=== PATIENT | female | born 1955 | race Caucasian/White ===

== ENCOUNTER 2022-10-08 09:34 | Outpatient (REF) | payer MEDICARE, SELFPAY ==
[2022-10-08 11:04] LABS: MANUAL DIFF FLAG NO
[2022-10-08 11:18] LABS: Basophils Absolute Auto 0.1 X10*3/uL (0.0-0.2); Basophils Percent Auto 1.4 % (0-2); Eosinophils Absolute Auto 0.1 X10*3/uL (0.0-0.4); Eosinophils Percent Auto 2.7 % (0-4); Hematocrit 37.4 % (37.0-47.0); Hemoglobin 12.6 g/dl (12.0-16.0); Imm Gran Abs Auto 0.01 X10*3/uL (0.00-0.03); Imm Gran Pct Auto 0.2 % (0.0-0.4); Lymphocytes Absolute Auto 1.2 X10*3/uL (1.2-4.9); Lymphocytes Percent Auto 27.6 % (20-40); Mean Corpuscular HGB Conc 33.7 g/dl (31.0-35.0); Mean Corpuscular Hemoglobin 31.3 pg (27.0-33.0); Mean Corpuscular Volume 92.8 fL (80.0-98.0); Mean Platelet Volume 9.5 fL (9.4-12.3); Monocytes Absolute Auto 0.4 X10*3/uL (0.1-1.2); Neutrophils Absolute Auto 2.5 x10*3/uL (2.0-8.3); Neutrophils Percent Auto 58.1 % (45-73); Platelet Count 296 X10*3/uL (160-400); Red Blood Count 4.03 X10*6/uL (4.20-5.50); Red Cell Distribution Width 11.9 % (11.0-16.0); White Blood Count 4.4 X10*3/uL (4.8-10.8)
[2022-10-08 11:38] LABS: Alanine Aminotransferase 28 U/L (0-31); Albumin Level 4.6 g/dL (3.5-5.0); Alkaline Phosphatase 66 U/L (39-117); Anion Gap 10 (12-20); Aspartate Amino Transferase 25 U/L (5-31); Bilirubin Total 0.7 mg/dL (0.0-1.0); Blood Urea Nitrogen 16 mg/dL (9-16); Calcium 9.8 mg/dL (8.4-10.2); Carbon Dioxide 29 mmol/L (22-29); Chloride 104 mmol/L (96-108); Cholesterol 279 mg/dL; Estimated Glomerular Filt Rate > 60; Glucose Fasting 92 mg/dL (60-99); HDL Cholesterol 87 mg/dL; LDL Cholesterol Calculated 177 mg/dl; Potassium 4.3 mmol/L (3.3-5.1); Sodium 139 mmol/L (135-145); Total Protein 7.1 g/dL (6.5-8.0); Triglycerides 79 mg/dL
[2022-10-08 11:55] LABS: TSH reflex Free T4 2.53 uIU/mL (0.32-4.0); Vitamin D 25-OH Total 52.9 ng/mL (>30)
== END 2022-10-08 09:35 | disposition home or self-care (01) ==
LOC: HO.HMGCLDS 09:34
PROVIDERS: PCP Internal Medicine; Visit Provider Internal Medicine
DX: Z00.00 Encounter for general adult medical examination without abnormal findings (principal); G47.30 Sleep apnea, unspecified; Z98.890 Other specified postprocedural states; Z78.0 Asymptomatic menopausal state; Z12.4 Encounter for screening for malignant neoplasm of cervix
CPT/HCPCS: 36415; 80053; 80061; 82306; 84443; 85025; 87624; 88142

== ENCOUNTER 2022-10-08 09:56 | Outpatient (REF) | payer MEDICARE, SELFPAY ==
[2022-10-09 22:03] LABS: HPV mRNA E6/E7 Not Detected (Not Detected)
== END 2022-10-08 09:57 | disposition home or self-care (01) ==
LOC: HO.LNP 09:56
PROVIDERS: Visit Provider Internal Medicine
DX: Z13.89 Encounter for screening for other disorder (principal)
CPT/HCPCS: 88142

== ENCOUNTER → 2022-11-04 13:53 | Outpatient (REF) | payer MEDICARE, SELFPAY ==
--- NOTE | ~2022-11-04 | MM_ITS ---
EXAMINATION: BONE DENSITOMETRY CLINICAL INDICATION: Menopause. COMPARISON: None (current study represents initial baseline exam). TECHNIQUE: Using a [employer] DXA System (software version: 13.1) manufactured by [employer], dual-energy x-ray absorptiometry was performed of the lumbar spine and left hip. The images are of good technical quality. Summary results are attached. FINDINGS: AP SPINE L1-L4: BMD 0.843 g/cm2, Z-score -0.9, T-score -2.8, osteoporosis. LEFT FEMUR, NECK: BMD 0.711 g/cm2, Z-score -0.7, T-score -2.3, osteopenia. LEFT FEMUR, TOTAL: BMD 0.813 g/cm2, Z-score -0.1, T-score -1.5, osteopenia. IDENTIFIED RISK FACTORS: Menopause, low calcium intake. HISTORY OF FRACTURE: None listed. MEDICATIONS: Multivitamin, vitamin D. MM/XR DEXA axial skeleton IMPRESSION: 1. DIAGNOSIS: Osteoporosis based on the lowest T-score value of -2.8 in the lumbar spine applying World Health Organization criteria. 2. 10-YEAR FRACTURE RISK PREDICTION, FRAX: According to the guidelines, FRAX calculation should only be performed on patients in the osteopenia bone density category. Therefore, FRAX was not performed on this patient. 3. Treatment Recommendations: NOF guidelines recommend consideration for treatment in postmenopausal women and men age 50 and older presenting with the following: -A hip or vertebral (clinical or morphometric) fracture. -T-score less than or equal to -2.5 at the femoral neck or spine after appropriate evaluation to exclude secondary causes. -Low bone mass at the hip or spine and a 10-year fracture probability by FRAX of greater than or equal to 3% for hip fracture or greater than or equal to 20% for major osteoporotic fracture based on the [place] adapted WHO algorithm. 4. Other Recommendations: All treatment decisions require clinical judgment and consideration of individual patient factors, including patient preferences, comorbidities, previous drug use, risk factors not captured in the FRAX model (e.g. frailty, falls, vitamin D deficiency, increased bone turnover, interval significant decline in bone density) and possible under or overestimation of fracture risk by FRAX. Additional medical evaluation for secondary cause of low bone mineral density may be appropriate. FUTURE SCAN RECOMMENDATION: People with diagnosed cases of osteoporosis or at high risk for fracture should have regular bone mineral density tests. For patients eligible for Medicare, routine testing is allowed once every 2 years. The testing frequency can be increased to one year for patients who have rapidly progressing disease, those who are receiving or discontinuing medical therapy to restore bone mass, or have additional risk factors.
== END ==
LOC: HO.SL 13:53
PROVIDERS: Visit Provider Internal Medicine
DX: Z13.820 Encounter for screening for osteoporosis (principal); Z78.0 Asymptomatic menopausal state; G47.30 Sleep apnea, unspecified; R06.83 Snoring
CPT/HCPCS: 77080; 95806

== ENCOUNTER 2024-01-14 07:31 | Outpatient (AMB) | payer MEDICARE, SELFPAY ==
--- NOTE | 2024-01-14 07:44 | A.OFFPC_ITS ---
Vital Signs 01/14/24 07:52 Height 5 ft 1 in Weight 121 lb BMI 22.9 BP 92/60 Blood Pressure Location Lt brachial Position Sitting Pulse 56 Pulse Source Pulse Oximeter Pulse Oximetry (%) 97 Oxygen Delivery Method Room Air Intake Visit Reasons: 01/[address] 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 Allergies No Known Allergies Allergy (Verified 01/14/24 07:48) Medication List - Last Reconciled 01/14/24 by Lubna Kee MD cholecalciferol (vitamin D3) 25 mcg PO DAILY lysine 500 mg PO DAILY mecobalamin (vitamin B12) 1,000 mcg PO DAILY multivitamin 1 tab PO DAILY soybean, fermented (Nattokinase) mg PO vitamin E (dl, acetate) 45 mg PO BID Tobacco use date assessed: 01/14/24 Fall risk assessment: 1 Fall in past year Last assessed Fall Risk: 01/14/24 Dental Screening Dental Screen Date: 01/14/24 Did you have a dental visit in the last 12 months?: Yes Did you have a dental problem in the last 6 months where you did not have access to dental care?: No HPI HPI Comments History of Present Illness Details Pt presents for PE. Pt c/o chronic GERD for years, feeling pressure- like sensation in mid esophagus after eating spicy and sweet foods, getting more frequent in the last few months. She denies dysphagia odynophagia food regurgitation abdominal pain hematochezia melena. Patient has been taking omeprazole on and off with some relief but never had endoscopy. PFSH Family History Brother Substance use disorder Social History Household Members Other:: , retired Housing: House Patient Tobacco Use Status: Never used Tobacco e-Cigarette/Vaping Use: Never Used service: No Current occupational status: unemployed Cognitive needs: No Hearing needs: No Vision needs: Yes Questionnaire PHQ-9 Over the last 2 weeks, how often have you been bothered by any of the following problems? 1. Little interest or pleasure in doing things: not at all 2. Feeling down, depressed, or hopeless: not at all 3. Trouble falling or staying asleep, or sleeping too much: not at all 4. Feeling tired or having little energy: several days 5. Poor appetite or overeating: not at all 6. Feeling bad about yourself - or that you are a failure or have let yourself or your family down: not at all 7. Trouble concentrating on things, such as reading the newspaper or watching television: not at all 8. Moving or speaking so slowly that other people could have noticed. Or the opposite - being so fidgety or restless that you have been moving around a lot more than usual: not at all 9. Thoughts that you would be better off or of hurting yourself in some way: not at all Total score: 1 Depression Screening Interpretation: Negative Depression Screening Done: Yes Source: Developed by Drs. Ricardo Loera, Lucia Nieto, Dario Cortés and colleagues, with an educational allison from [employer]. Thrive Questionnaire Date Thrive assessed: 01/14/24 I am a: Patient What is your living situation today?: I have a steady place to live Within the past 12 months, did the food you bought not last and you didn't have the money to get more?: Never true Within the past 12 months, did you worry whether your food would run out before you got money to buy more?: Never true Do you have trouble paying for medicines?: No Do you have trouble getting transportation to medical appointments?: No Do you have trouble paying your heating and electricity bill?: No Do you have trouble taking care of your child, family member or friend?: No Do you have trouble with day-to-day activities such as bathing, preparing meals, shopping, managing finances, etc.?: No Are you currently unemployed and looking for a job?: No Are you interested in more education?: No THRIVE Score: 0 AUDIT C Alcohol Use Questionnaire (AUDIT-C) 1. How often do you have a drink containing alcohol?: 2-4 times a month 2. How many drinks containing alcohol do you have on a typical day when you are drinking?: 1 or 2 3. How often do you have six or more drinks on one occasion?: Never Total Score: 2 MILDRED-7 AMB Questionnaire MILDRED-7 Date MILDRED - 7 assessed: 01/14/24 Feeling nervous, anxious, or on edge: 0 = Not at all Not being able to stop or control worryin = Not at all Worrying too much about different things: 0 = Not at all Trouble relaxin = Not at all Being so restless that it is hard to sit still: 0 = Not at all Becoming easily annoyed or irritable: 0 = Not at all Feeling afraid as if something awful might happen: 0 = Not at all Total MILDRED-7 score (0-4 normal; 5-9 mild; 10-14 moderate; 15-21 severe): 0 Source: Developed by Drs. Ricardo Loera, Lucia Nieto, Dario Cortés and colleagues, with an educational allison from [employer]. Review of Systems Const All systems reviewed & are unremarkable except as noted in HPI and below Reports no additional complaints Eyes Reports no additional complaints ENT Reports no additional complaints Card Reports no additional complaints Resp Reports no additional complaints GI Reports no additional complaints Reports no additional complaints Musc Reports no additional complaints Skin/Breast Reports system reviewed and no additional complaints, except as documented Physical exam (Primary Care) Vital Signs: Last Vital Signs Pulse 56 01/14/24 07:52 BP 92/60 01/14/24 07:52 Pulse Ox 97 01/14/24 07:52 Oxygen Delivery Method Room Air 01/14/24 07:52 BMI result Body Mass Index 22.9 Tobacco/Smoking Status: Tobacco use Status Tobacco use date assessed 01/14/24 01/14/24 07:54 Patient Tobacco Use Status Never used Tobacco 01/14/24 08:29 e-Cigarette/Vaping Use Never Used 01/14/24 08:29 PHQ-9: PHQ-9 Score PHQ-9: Total score 1 01/14/24 08:16 Depression Screening Interpretation: Negative Thrive Assessment: Date of Thrive Assessment Date Thrive assessed 01/14/24 01/14/24 08:04 Const General: no acute distress HENMT Head: Yes normal to inspection Ears: hearing grossly normal bilaterally Face and sinus: Yes normal facial exam Throat: Yes posterior oropharynx normal Eyes General: appearance normal, both eyes and all related structures Neck Neck: Yes no lymphadenopathy and Yes supple Resp Effort & Inspection: normal respiratory effort Auscultation: clear to auscultation bilaterally Cardio Rhythm: regular rhythm Heart sounds: S1 normal heart sound present and S2 normal heart sound present GI Inspection: Yes normal to inspection Palpation (GI): Soft to palpation Percussion: Yes normal to percussion Auscultation: normal bowel sounds Assessment and Plan Assessment & Plan (1) GERD (gastroesophageal reflux disease): Comment: chronic GERD Code(s): K21.9 - Gastro-esophageal reflux disease without esophagitis Plan: For chronic GERD patient will be referred to golf professional of her choice at [facility]. Antegrade diet and taking PPI for 1 month discussed with the patient (2) Annual physical exam: Code(s): Z00.00 - Encounter for general adult medical examination without abnormal findings Plan: Well-balanced diet regular physical activity discussed with the patient, she will have a fasting blood work today. (3) Vitamin D deficiency: Code(s): E55.9 - Vitamin D deficiency, unspecified Plan: Continue vitamin-D supplement (4) Skin cancer: Comment: right side of nose Code(s): C44.90 - Unspecified malignant neoplasm of skin, unspecified Plan: Patient is medically cleared for Mohs surgery Orders: Orders Comprehensive [place]. Panel Fast Today Z00.00 - Encounter for general adult medical examination without abnormal findings Complete Blood Count Auto Diff Today Z00.00 - Encounter for general adult medical examination without abnormal findings Lipid Panel Today Z00.00 - Encounter for general adult medical examination without abnormal findings Vitamin D 25-OH Total Today E55.9 - Vitamin D deficiency, unspecified TSH reflex Free T4 Today Z00.00 - Encounter for general adult medical examination without abnormal findings Referrals Gastroenterology Referral K21.9 - Gastro-esophageal reflux disease without esophagitis Medications: New estradiol 10 mcg vaginal 2XW 8 inserts 4RF Coding Level of Care Code Est Pt Prev Care >65y(38387) Diagnoses GERD (gastroesophageal reflux disease) K21.9 Annual physical exam Z00.00 Vitamin D deficiency E55.9 Skin cancer C44.90
[2024-01-14 07:52] VITALS: BP 92/60; PULSE 56; O2SAT 97; BMI 22.9
== END 2024-01-14 08:40 | disposition home or self-care (01) ==
PROVIDERS: PCP Internal Medicine; Visit Provider Internal Medicine
DX: K21.9 Gastro-esophageal reflux disease without esophagitis (principal); E55.9 Vitamin D deficiency, unspecified; C44.90 Unspecified malignant neoplasm of skin, unspecified; Z01.818 Encounter for other preprocedural examination
CPT/HCPCS: 99214

== ENCOUNTER 2024-01-14 08:39 | Outpatient (REF) | payer MEDICARE, SELFPAY ==
[2024-01-14 10:22] LABS: MANUAL DIFF FLAG NO
[2024-01-14 10:39] LABS: Basophils Absolute Auto 0.1 X10*3/uL (0.0-0.2); Basophils Percent Auto 1.2 % (0-2); Eosinophils Absolute Auto 0.2 X10*3/uL (0.0-0.4); Eosinophils Percent Auto 3.3 % (0-4); Hematocrit 36.8 % (37.0-47.0); Hemoglobin 12.7 g/dl (12.0-16.0); Imm Gran Abs Auto 0.01 X10*3/uL (0.00-0.03); Imm Gran Pct Auto 0.2 % (0.0-0.4); Lymphocytes Absolute Auto 1.2 X10*3/uL (1.2-4.9); Lymphocytes Percent Auto 23.8 % (20-40); Mean Corpuscular HGB Conc 34.5 g/dl (31.0-35.0); Mean Corpuscular Hemoglobin 32.3 pg (27.0-33.0); Mean Corpuscular Volume 93.6 fL (80.0-98.0); Mean Platelet Volume 9.6 fL (9.4-12.3); Monocytes Absolute Auto 0.5 X10*3/uL (0.1-1.2); Monocytes Percent Auto 10.8 % (2-11); Neutrophils Absolute Auto 2.9 x10*3/uL (2.0-8.3); Neutrophils Percent Auto 60.7 % (45-73); Platelet Count 290 X10*3/uL (160-400); Red Blood Count 3.93 X10*6/uL (4.20-5.50); Red Cell Distribution Width 11.7 % (11.0-16.0); White Blood Count 4.8 X10*3/uL (4.8-10.8)
[2024-01-14 11:16] LABS: Alanine Aminotransferase 16 U/L (0-31); Albumin Level 4.4 g/dL (3.5-5.0); Alkaline Phosphatase 69 U/L (39-117); Anion Gap 11 (12-20); Aspartate Amino Transferase 23 U/L (5-31); Bilirubin Total 0.6 mg/dL (0.0-1.0); Blood Urea Nitrogen 10 mg/dL (9-16); Calcium 9.7 mg/dL (8.4-10.2); Carbon Dioxide 28 mmol/L (22-29); Chloride 104 mmol/L (96-108); Cholesterol 221 mg/dL (<200); Estimated Glomerular Filt Rate > 60; Glucose Fasting 89 mg/dL (60-99); HDL Cholesterol 74 mg/dL (>40); LDL Cholesterol Calculated 135 mg/dL (<100); Potassium 4.2 mmol/L (3.3-5.1); Sodium 139 mmol/L (135-145); TSH reflex Free T4 3.12 uIU/mL (0.32-4.0); Total Protein 6.8 g/dL (6.5-8.0); Triglycerides 61 mg/dL (<150); Vitamin D 25-OH Total 69.1 ng/mL (>30)
== END 2024-01-14 08:40 | disposition home or self-care (01) ==
LOC: HO.HMGCLDS 08:39
PROVIDERS: PCP Internal Medicine; Visit Provider Internal Medicine
DX: Z00.00 Encounter for general adult medical examination without abnormal findings (principal); E55.9 Vitamin D deficiency, unspecified
CPT/HCPCS: 36415; 80053; 80061; 82306; 84443; 85025

== ENCOUNTER 2024-07-18 09:49 | Outpatient (AMB) | payer MEDICARE, SELFPAY ==
[2024-07-18 10:00] VITALS: BP 100/64; PULSE 53; O2SAT 99; BMI 23.6
--- NOTE | 2024-07-18 10:05 | A.OFFPC_ITS ---
Vital Signs 07/18/24 10:00 Height 5 ft 1 in Weight 125 lb BMI 23.6 BP 100/64 Blood Pressure Location Lt brachial Position Sitting Pulse 53 Pulse Source Pulse Oximeter Pulse Oximetry (%) 99 Oxygen Delivery Method Room Air Intake Visit Reasons: Follow up Allergies No Known Allergies Allergy (Verified 07/18/24 10:03) Medication List - Last Reconciled 07/18/24 by Lubna Kee MD cholecalciferol (vitamin D3) 25 mcg PO DAILY estradiol 10 mcg vaginal 2XW lysine 500 mg PO DAILY mecobalamin (vitamin B12) 1,000 mcg PO DAILY multivitamin 1 tab PO DAILY soybean, fermented (Nattokinase) mg PO vitamin E (dl, acetate) 45 mg PO BID Tobacco use date assessed: 07/18/24 Fall risk assessment: No Falls in past year Last assessed Fall Risk: 07/18/24 Dental Screening Dental Screen Date: 01/14/24 HPI Follow up HPI Details Pt presents for f/u DEXA and hyperlipid. Pt has been following low cholesterol diet, exercise 5 x a week [facility] Hx of tonsillectomy [place] teeth extracted Family History Brother Substance use disorder Social History Household Members Other:: , retired Housing: House Patient Tobacco Use Status: Never used Tobacco e-Cigarette/Vaping Use: Never Used service: No Current occupational status: unemployed Cognitive needs: No Hearing needs: No Vision needs: Yes Questionnaire PHQ-9 Over the last 2 weeks, how often have you been bothered by any of the following problems? 1. Little interest or pleasure in doing things: not at all 2. Feeling down, depressed, or hopeless: not at all 3. Trouble falling or staying asleep, or sleeping too much: not at all 4. Feeling tired or having little energy: not at all 5. Poor appetite or overeating: not at all 6. Feeling bad about yourself - or that you are a failure or have let yourself or your family down: not at all 7. Trouble concentrating on things, such as reading the newspaper or watching television: not at all 8. Moving or speaking so slowly that other people could have noticed. Or the opposite - being so fidgety or restless that you have been moving around a lot more than usual: not at all 9. Thoughts that you would be better off or of hurting yourself in some way: not at all Total score: 0 Depression Screening Interpretation: Negative Depression Screening Done: Yes 52212 - PHQ-9 Billing: Yes Source: Developed by Drs. Ricardo Loera, Lucia Nieto, Dario Cortés and colleagues, with an educational allison from [facility]. Thrive Questionnaire Date Thrive assessed: 01/14/24 AUDIT C Alcohol Use Questionnaire (AUDIT-C) 1. How often do you have a drink containing alcohol?: Monthly or less 2. How many drinks containing alcohol do you have on a typical day when you are drinking?: 1 or 2 3. How often do you have six or more drinks on one occasion?: Never Total Score: 1 MILDRED-7 AMB Questionnaire MILDRED-7 Date MILDRED - 7 assessed: 01/14/24 Source: Developed by Drs. Ricardo Loera, Lucia Nieto, Dario Cortés and colleagues, with an educational allison from [facility]. Review of Systems Const All systems reviewed & are unremarkable except as noted in HPI and below Eyes Reports no additional complaints ENT Reports no additional complaints Card Reports no additional complaints Resp Reports no additional complaints GI Reports no additional complaints Physical exam (Primary Care) Vital Signs: Last Vital Signs Pulse 53 07/18/24 10:00 BP 100/64 07/18/24 10:00 Pulse Ox 99 07/18/24 10:00 Oxygen Delivery Method Room Air 07/18/24 10:00 BMI result Body Mass Index 23.6 Tobacco/Smoking Status: Tobacco use Status Tobacco use date assessed 07/18/24 07/18/24 10:08 Patient Tobacco Use Status Never used Tobacco 07/18/24 10:08 e-Cigarette/Vaping Use Never Used 07/18/24 10:08 PHQ-9: PHQ-9 Score PHQ-9: Total score 0 07/18/24 12:19 Depression Screening Interpretation: Negative Thrive Assessment: Date of Thrive Assessment Date Thrive assessed 01/14/24 07/18/24 10:08 Const General: no acute distress HENMT Head: Yes normal to inspection Eyes General: appearance normal, both eyes and all related structures Neck Neck: Yes supple Resp Effort & Inspection: normal respiratory effort Auscultation: clear to auscultation bilaterally Cardio Rhythm: regular rhythm Heart sounds: S1 normal heart sound present and S2 normal heart sound present Coding Level of Care Code Est Pt Level 3 (09524) Diagnoses Screening mammogram for breast cancer Z08.09 Vitamin D deficiency E55.9 Osteoporosis M81.0 Hyperlipidemia E78.5 Additional Codes PHQ-9 - 68914 - PHQ-9 Billing: Yes ([id number]) Assessment & Plan Assessment & Plan (1) Screening mammogram for breast cancer: Comment: 2023 [facility] Code(s): Z. - Encounter for screening mammogram for malignant neoplasm of breast Category: Medical Plan: Up-to-date with the mammogram (2) Vitamin D deficiency: Code(s): E55.9 - Vitamin D deficiency, unspecified Category: Medical Plan: cont vit D (3) Osteoporosis: Comment: DEXA 10/30 T score -2.8 AP spine L1-4 Code(s): M81.0 - Age-related osteoporosis without current pathological fracture Category: Medical Plan: WEIGHT-BEARING EXERCISES CONTINUE VITAMIN-D CALCIUM SUPPLEMENT discussed with the patient. She is not interested in taking medication. Repeat DEXA next year (4) Hyperlipidemia: Code(s): E78.5 - Hyperlipidemia, unspecified Category: Medical Plan: Continue low-cholesterol diet exercise return for physical in 6 months with a fasting labs before Orders: Orders Complete Blood Count Auto Diff 6 Months E55.9 - Vitamin D deficiency, unspecified, Z00.00 - Encounter for general adult medical examination without abnormal findings, Z. - Encounter for screening mammogram for malignant neoplasm of breast Lipid Panel 6 Months E55.9 - Vitamin D deficiency, unspecified, Z00.00 - Encounter for general adult medical examination without abnormal findings, Z12. - Encounter for screening mammogram for malignant neoplasm of breast TSH reflex Free T4 6 Months E55.9 - Vitamin D deficiency, unspecified, Z00.00 - Encounter for general adult medical examination without abnormal findings, Z12. - Encounter for screening mammogram for malignant neoplasm of breast LDL Cholesterol Direct 6 Months E78.5 - Hyperlipidemia, unspecified Comprehensive [place]. Panel Fast 6 Months E55.9 - Vitamin D deficiency, unspecified, Z00.00 - Encounter for general adult medical examination without abnormal findings, Z12.31 - Encounter for screening mammogram for malignant neoplasm of breast Vitamin D 25-OH Total 6 Months E55.9 - Vitamin D deficiency, unspecified, E78.5 - Hyperlipidemia, unspecified, Z00.00 - Encounter for general adult medical examination without abnormal findings, Z12.31 - Encounter for screening mammogram for malignant neoplasm of breast XR DEXA axial skeleton 6 Months M81.0 - Age-related osteoporosis without current pathological fracture Medications: Discontinued estradiol Discontinued Reason: Doctor's Order 10 mcg vaginal 2XW 8 inserts 4RF
== END 2024-07-18 10:54 | disposition home or self-care (01) ==
PROVIDERS: PCP Internal Medicine; Visit Provider Internal Medicine
DX: Z12.31 Encounter for screening mammogram for malignant neoplasm of breast (principal); E55.9 Vitamin D deficiency, unspecified; M81.0 Age-related osteoporosis without current pathological fracture; E78.5 Hyperlipidemia, unspecified

== ENCOUNTER → 2024-07-18 09:49 | Outpatient (BNVA) | payer MEDICARE, SELFPAY | PROVIDERS: PCP Internal Medicine; Visit Provider Internal Medicine | DX: E55.9 Vitamin D deficiency, unspecified (principal); M81.0 Age-related osteoporosis without current pathological fracture; E78.5 Hyperlipidemia, unspecified | CPT/HCPCS: 96127; 99212 ==

== ENCOUNTER 2025-02-01 08:34 | Outpatient (REF) | payer MEDICARE, SELFPAY ==
--- OUTSIDE RECORDS SUMMARY | 2025-02-01 08:58 | XMS_ITS | Data Portability ---
Author Organization [place] - [facility] Address [address] [place] [address] Assessment No assessment recorded. Plan of Treatment Reminders Order Date Submit Date Provider Last Modified By Organization Details Last Modified Time Details Appointments None recorded. Lab None recorded. Referral physical therapist referral - bilateral knee trochanteri c bursitis, stretching, strengtheni ng and ROM 2023 024 [email or web address] Not available 4 06:39:56 Procedures None recorded. Surgeries None recorded. Imaging XR, hip + pelvis, bilateral, 2 view - 202 bilat hip pain 2023 024 [email or web address] Not available 4 06:39:56 Medication Orders None recorded. Patient TargetsNo targets recorded. Patient InstructionsNo instructions recorded. Reason for Referral Physical Therapist Referral for Pain of bilateral hip joints bilateral knee trochanteric bursitis, stretching, strengthening and ROM Referring Physician: Tyrese Catalan, Orthopedic Surgery, [id number] Encounter Date: 11/16/2023 Problems Name Problem SNOMED Code Status Onset Date Resolution Date Notes Provider Name and Address Organization Details Recorded Time No complaints [id number] Active Status : 'A'; Not Available [employer] 4 09:24:48 Problem Notes None recorded. Medical Equipment None Reported. Allergies No known drug allergies Medications Name Sig Start Date Stop Date Status Note LastModified by Organization Details LastModified Time [employer] COVID-19 Ag Self Test kit FOLLOW PACKAGE DIRECTIONS 11/15 completed Not Available Not Available Not Available Vitals Date Recorded Body height Body mass index (BMI) Body weight Provider Name and Address Organization Details Last Updated DateTime 11/16/2023 154.94 cm 22.7 kg/m2 62026.08 g APOOLNIA VALENZUELAHEAD [place] - [facility] 11/16/2023 09:29:32 Social History None recorded. Functional Status None recorded. Mental Status None recorded. Family History Nothing Reported. Medical History No medical history recorded. Gynecological HistoryNo gynecological history recorded. Obstetrics History GPAL:G 0 P 0 0 0 0 Past Encounters Encounter ID Performer Location Encounter Start Date Encounter Closed Date Diagnosis/Indication Diagnosis SNOMED-CT Code Diagnosis ICD10 Code Diagnosis Note [id number] MENA Guzmán [address] [place] [address] 11/16/2023 09:17:25 12/08/2023 06:39:55 Pain of bilateral hip joints 8407156508 1741007 M25.551 M25.552 Bilateral trochanteric bursitis [id number] M70.61 M70.62 Health Concerns Section Related Observation LastModified by Organization Detai ls LastModified Time None Recorded Concern Status LastModified by Organization Details LastModified Time None Recorded Advance Directives Directive None Recorded Payers Insurance Date Sequence Insurance Name Policy Number Policy Padgett Covered Member ID Padgett Member ID Guarantor Name 11/16/2023 1 [place] [employer] Princess Ellison Kacey [id number] Princess C Kacey 12/08/2023 2 [place] [id number] Princess Ellison Kacey [id number] Princess C Kacey Notes Date Note Type Note Provider Name and Address Organization Details Recorded Time 11/16/2023 text/html I am seeing the patient today under the supervision of Dr. Steel who was available but who did not see the patient. History: This pleasant woman presents today with a roughly 1-1/2-year history of left greater than right hip pain. Low pain is located laterally about her hips. Increased with lying on her sides as well as long distance walking. Reports no injuries. Reports no fevers or chills. Denies any groin pain. Has had no treatment for this PMH/PSH/MEDS/ALL/FM H/SOC HX/ROS are reviewed in detail per my medical intake sheet. Does exercise regularly and tries to stretch regularly with mild improvement General Exam: Vital signs are as noted belowMental status: Alert and lucid. Normal insight, affect and grooming.ACCOUNT ANALYST: Gross motor coordination is intact. No spasticity or clonus noted.Extremities:C william are soft non tender, skin intact.Orthopedic Examination:Patient has a negative straight leg raise bilaterally.Right Hip: Tenderness laterally. Full range of motion of the hip. No referred pain. Negative straight leg raise as noted above.Left Hip: Tenderness laterally. Full range of motion of the hip without referred pain.Full strength and sensation distally. X-rays: Radiographs 2 views ordered obtained and reviewed today in the office bilateral hips show no arthritic change. Slight bone spurring off the trochanter superiorly and inferiorly right more so than left Assessment: Bilateral hip ITB tendinitis with trochanteric bursitis PLAN: Recommended mainly a course of physical therapy for her. Follow-up with us as needed. Discussed with her the role of trochanteric bursal injection which I did not go forth with today. Recommended Voltaren gel as well as occasional use of Aleve. [facility] speech recognition club steward software was used to create portions of this document. An attempt at proofreading has been made to minimize errors. Please call for corrections. Tyrese Catalan PA-C [address], [place], [address], [facility] - [facility] 11/16/2023 12:42:48 OBGyn Episode No OBEpisode recorded.
[2025-02-01 10:27] LABS: MANUAL DIFF FLAG NO
[2025-02-01 10:32] LABS: Basophils Absolute Auto 0.1 X10*3/uL (0.0-0.2); Basophils Percent Auto 1.4 % (0-2); Eosinophils Absolute Auto 0.2 X10*3/uL (0.0-0.4); Eosinophils Percent Auto 3.6 % (0-4); Hematocrit 34.8 % (37.0-47.0); Hemoglobin 12.1 g/dl (12.0-16.0); Lymphocytes Absolute Auto 1.3 X10*3/uL (1.2-4.9); Lymphocytes Percent Auto 29.3 % (20-40); Mean Corpuscular HGB Conc 34.8 g/dl (31.0-35.0); Mean Corpuscular Hemoglobin 31.8 pg (27.0-33.0); Mean Corpuscular Volume 91.6 fL (80.0-98.0); Mean Platelet Volume 9.8 fL (9.4-12.3); Monocytes Absolute Auto 0.5 X10*3/uL (0.1-1.2); Monocytes Percent Auto 10.2 % (2-11); Neutrophils Absolute Auto 2.4 x10*3/uL (2.0-8.3); Neutrophils Percent Auto 55.5 % (45-73); Platelet Count 266 X10*3/uL (160-400); Red Cell Distribution Width 11.6 % (11.0-16.0); White Blood Count 4.4 X10*3/uL (4.8-10.8)
[2025-02-01 10:58] LABS: Alanine Aminotransferase 22 U/L (0-31); Albumin Level 4.4 g/dL (3.5-5.0); Alkaline Phosphatase 62 U/L (39-117); Anion Gap 11 (12-20); Aspartate Amino Transferase 28 U/L (5-31); Bilirubin Total 0.6 mg/dL (0.0-1.0); Blood Urea Nitrogen 15 mg/dL (9-16); Calcium 9.9 mg/dL (8.4-10.2); Carbon Dioxide 28 mmol/L (22-29); Chloride 102 mmol/L (96-108); Cholesterol 240 mg/dL (<200); Estimated Glomerular Filt Rate > 60; Glucose Fasting 87 mg/dL (60-99); HDL Cholesterol 73 mg/dL (>40); LDL Cholesterol Calculated 151 mg/dL (<100); Potassium 4.1 mmol/L (3.3-5.1); Sodium 137 mmol/L (135-145); Total Protein 6.6 g/dL (6.5-8.0); Triglycerides 84 mg/dL (<150)
[2025-02-01 11:01] LABS: TSH reflex Free T4 3.19 uIU/mL (0.32-4.0); Vitamin D 25-OH Total 78.5 ng/mL (>30)
[2025-02-03 05:14] LABS: LDL Cholesterol Direct 150 mg/dL (<100)
== END 2025-02-01 08:35 | disposition home or self-care (01) ==
LOC: HO.HMGCLDS 08:34
PROVIDERS: PCP Internal Medicine; Visit Provider Internal Medicine
DX: Z00.00 Encounter for general adult medical examination without abnormal findings (principal); E55.9 Vitamin D deficiency, unspecified; Z12.31 Encounter for screening mammogram for malignant neoplasm of breast; E78.5 Hyperlipidemia, unspecified
CPT/HCPCS: 36415; 80053; 80061; 82306; 83721; 84443; 85025

== ENCOUNTER 2025-02-03 09:51 | Outpatient (AMB) | payer MEDICARE, SELFPAY ==
[2025-02-03 09:53] VITALS: BP 122/76; PULSE 52; RESP 18; TEMP 36.7; O2SAT 99; BMI 23.4
--- NOTE | 2025-02-03 09:53 | AM.OFFVISMDC ---
Intake Vital Signs 02/03/25 09:53 Height 5 ft 1 in Weight 124 lb BMI 23.4 BP 122/76 Blood Pressure Location Lt brachial Position Sitting Respiration 18 Pulse 52 Pulse Source Pulse Oximeter Temp 98.0 F Temp Source Oral Pulse Oximetry (%) 99 Oxygen Delivery Method Room Air Intake Visit Reasons: SWV G0439, resched Allergies No Known Allergies Allergy (Verified 02/03/25 10:27) Medication List - Last Reconciled 02/03/25 by Lubna Kee MD cholecalciferol (vitamin D3) 25 mcg PO DAILY lysine 500 mg PO DAILY mecobalamin (vitamin B12) 1,000 mcg PO DAILY multivitamin 1 tab PO DAILY soybean, fermented (Nattokinase) mg PO HPI SWV G0439, resched HPI Details Initiated the conversation about Advanced Directives. Advanced Directives help? patients prepare for current and future decisions about their medical treatment? and place of care. Discussed with patient that it is a process where a patients? current condition and prognosis are reviewed, their wishes for information? regarding their illness are elicited, and likely medical dilemmas are presented? and options discussed. The form can be amended as needed, reviewed yearly and? make changes as needed IPPE/AWV ? year old presents? for her ? Annual? Wellness Visit, initial visit.? Medical / Social History Reviewed? Past Medical History ?Yes? . ? [place]? of Care / Care Team list updated ?Yes . ? Surgical/Hospitalization? History ?Yes . ? Current Medications? (including OTC and supplements) ?Yes . ? Family History ?Yes? . ? Tobacco? Control form ?Yes . ? AUDIT-C (Alcohol use) form? ?Yes . ? Illicit drug use in Social? History ?Yes . ? Current diagnosis of? depression? ?No ? Appropriate PHQ2/PHQ9? completed ?Yes . ? Data entered by ?Medical? Ornamental Metal Worker and reviewed by provider ? Fall Risk ? Fall? History? Have you had any falls with? injury in the past year? ?No . ? Have you had two or more? falls in the past year? ?No . ? Fall Risk Assessment: ?No? falls in the past year . ? HRA filled out by? the patient, reviewed by Provider and scanned. ? IPPE/AWV ? Balance? [place]? ?Yes . ? Tandem? walk ?Yes . ? Walk and? Turn ?Yes . ? Rise from? sit to stand ?Yes . ?Vision? Corrective? lens ?Yes ? Vision? screen ? Up-to-date, has an appointment [] for vision? screening and glaucoma screening ?Hearing? Whisper? test ?pass .? Initiated the conversation about Advanced Directives. Advanced Directives help? patients prepare for current and future decisions about their medical treatment? and place of care. Discussed with patient that it is a process where a patients? current condition and prognosis are reviewed, their wishes for information? regarding their illness are elicited, and likely medical dilemmas are presented? and options discussed. The form can be amended as needed, reviewed yearly and? make changes as needed Written? Plan?Completed. See Patient? Documents. [facility], [facility] Medical History (Updated 02/03/25 @ 15:59 by Lubna Kee MD) Annual physical exam Osteoporosis Hyperlipidemia Surgical History (Updated 02/03/25 @ 10:51 by Lubna Kee MD) Hx of colonoscopy Hx of tonsillectomy [place] teeth extracted Family History (Updated 02/03/25 @ 10:34 by Hanny Patino [facility]) Brother Substance use disorder Father Hypertension Mother No problems noted. Social History Household Members Other:: , retired Housing: House Patient Tobacco Use Status: Never used Tobacco e-Cigarette/Vaping Use: Never Used service: No Current occupational status: unemployed Cognitive needs: No Hearing needs: No Vision needs: Yes Questionnaire Medicare Wellness Checkup [age] 65-71 What gender do you identify with?: female During the past 4 weeks, how much have you been bothered by emotional problems such as feeling anxious, depressed, irritable, sad or downhearted, and blue?: not at all During the past 4 weeks, has your physical & emotional health limited your social activities with family, friends, neighbors, or groups?: not at all During the past 4 weeks, how much bodily pain have you generally had?: very mild pain During the past 4 weeks, was someone available to help you if you needed & wanted help?: yes, as much as I wanted During the past 4 weeks, what was the hardest physical activity you could do for at least 2 minutes?: very heavy Can you get to places out of walking distance without help? (For eg., can you travel alone on buses, taxis or drive your car?): Yes Can you go shopping for groceries or clothes without someone's help?: Yes Can you prepare your own meals?: Yes Can you do your housework without help?: Yes Because of any health problems, do you need the help of another person with your personal care needs such as eating, bathing, dressing or getting around the house?: No Can you handle your own money without help?: Yes During the past 4 weeks, how would you rate your health in general?: very good During the past 4 weeks how have things been going for you?: pretty well Are you having difficulties driving your car?: no Do you always fasten your seat belt when you are in a car?: yes, usually During past 4 weeks, have you been bothered by the following: never: Falling or dizzy when standing up, Sexual problems?, Trouble eating well?, Teeth or denture problems? and Problems using the telephone? and sometimes: Tiredness or fatigue? Have you fallen 2 or more times in the past year?: No Are you afraid of falling?: No Are you a smoker?: no During the past 4 weeks, how many drinks of wine, beer, or other alcoholic beverages did you have?: no alcohol at all Do you exercise for about 20 minutes 3 or more times a week?: yes, most of the time Have you been given information to help with the following?: no: Hazards in your house that might hurt you? and no: Keeping track of your medications? How often do you have trouble taking medicines the way you have been told to take them?: I always take medicine as prescribed How confident are you that you can control & manage most of your health problems?: somewhat confident What is your race?: White Mini Mental State Exam (MMSE) Orientation What is the (year) (season) (date) (day) (month)?: year, season, date, day and month Where are we (state) (county) (town or city) (hospital) (floor)?: state, county, town or city, hospital/clinic and floor Registration Name of 3 unrelated objects clearly and slowly, then ask patient to repeat all 3 of them. (1st repeat determines score. Make sure they can repeat all three): object 1, object 2 and object 3 Attention & Calculation (CHOOSE ONE) Spell WORLD backwards (DLROW): 5 letters Recall Ask patient to repeat the 3 items from question #3.: object 1, object 2 and object 3 Language Show patient a wristwatch & ask what it is. Repeat for pencil.: watch and pencil Ask the patient to repeat the phrase 'No ifs, ands, or buts' after you.: correct Ask the patient to 'take a piece of paper with their right hand' 'fold paper in half' 'place paper on floor': take paper in right hand, fold paper in half and place paper on floor Print the sentence 'CLOSE YOUR EYES' on a piece. If patient actually closes eyes then score.: followed written direction Give patient a blank piece of paper & ask to write a sentence. Score if it contains a noun & verb.: sentence contains subject and verb Score Score: 29 PHQ-9 Over the last 2 weeks, how often have you been bothered by any of the following problems? 1. Little interest or pleasure in doing things: not at all 2. Feeling down, depressed, or hopeless: not at all 3. Trouble falling or staying asleep, or sleeping too much: not at all 4. Feeling tired or having little energy: several days 5. Poor appetite or overeating: not at all 6. Feeling bad about yourself - or that you are a failure or have let yourself or your family down: not at all 7. Trouble concentrating on things, such as reading the newspaper or watching television: not at all 8. Moving or speaking so slowly that other people could have noticed. Or the opposite - being so fidgety or restless that you have been moving around a lot more than usual: not at all 9. Thoughts that you would be better off or of hurting yourself in some way: not at all Total score: 1 Depression Screening Interpretation: Negative Depression Screening Done: Yes 67220 - PHQ-9 Billing: Yes Source: Developed by Drs. Ricardo Loera, Lucia Nieto, Dario Cortés and colleagues, with an educational allison from [employer]. Review of Systems Const All systems reviewed & are unremarkable except as noted in HPI and below Eyes Reports no additional complaints ENT Reports no additional complaints Card Reports no additional complaints Resp Reports no additional complaints GI Reports no additional complaints Reports no additional complaints Musc Reports no additional complaints Physical Exam Vital Signs: Last Vital Signs Temp 98.0 F 02/03/25 09:53 Pulse 52 02/03/25 09:53 Resp 18 02/03/25 09:53 BP 122/76 02/03/25 09:53 Pulse Ox 99 02/03/25 09:53 Oxygen Delivery Method Room Air 02/03/25 09:53 BMI result Body Mass Index 23.4 Const General: no acute distress HEENT Head: Yes normal to inspection Ears: hearing grossly normal bilaterally Eyes General: appearance normal, both eyes and all related structures Neck Neck: Yes no lymphadenopathy and Yes supple Resp Effort & Inspection: normal respiratory effort Auscultation: clear to auscultation bilaterally Cardio Rhythm: regular rhythm Heart sounds: S1 normal heart sound present and S2 normal heart sound present GI Inspection: Yes normal to inspection Palpation (GI): Soft to palpation Percussion: Yes normal to percussion Auscultation: normal bowel sounds Extrem General: Yes no clubbing, cyanosis or edema Results AMB Urinalysis, Automated UA Leukoctes 0 Shiv/uL Last Edit by Hanny Patino [facility] on 02/03/25 11:35 UA Nitrite Negative Last Edit by Hanny Patino [facility] on 02/03/25 11:35 UA Urobilinogen 0.2 mg/dL Last Edit by Hanny Patino [facility] on 02/03/25 11:35 UA Protein 0 mg/dL Last Edit by Hanny Patino [facility] on 02/03/25 11:35 UA pH 7.0 Last Edit by Hanny Patino [facility] on 02/03/25 11:35 UA Blood 0 Rajan/uL Last Edit by Hanny Patino [facility] on 02/03/25 11:35 UA Specific [place] 1.010 Last Edit by Hanny Patino [facility] on 02/03/25 11:35 UA Ketone Negative Last Edit by Hanny Patino [facility] on 02/03/25 11:35 UA Bilirubin 0 mg/dL Last Edit by Hanny Patino [facility] on 02/03/25 11:35 UA Glucose 0 mg/dL Last Edit by Hanny Patino [facility] on 02/03/25 11:35 Assessment & Plan Assessment & Plan (1) Annual physical exam: Code(s): Z00.00 - Encounter for general adult medical examination without abnormal findings Plan: well balanced diet, regular exercise, pt is up to date with mammogram and colonoscopy (2) Hyperlipidemia: Comment: Patient declined treatment Code(s): E78.5 - Hyperlipidemia, unspecified Plan: Continue low-cholesterol diet patient declined treatment (3) Osteoporosis: Comment: DEXA 10/30 T score -2.8 AP spine L1-4, patient declined treatment, we will continue vitamin-D supplement and weight-bearing exercises repeat DEXA in 2 years Code(s): M81.0 - Age-related osteoporosis without current pathological fracture Plan: Patient will have a repeat DEXA continue vitamin-D (4) Hip pain, bilateral: Comment: Evaluated by Orthopedics, Code(s): M25.551 - Pain in right hip; M25.552 - Pain in left hip Plan: Referred to physical therapy (5) Incontinence of urine: Comment: For stress incontinence patient will try estradiol vaginal cream Code(s): R32 - Unspecified urinary incontinence Plan: Check UA and try estradiol vaginal cream if symptoms persist she will be referred to urogynecology Orders: Orders PT Evaluation and Treatment Today M25.551 - Pain in right hip, M25.552 - Pain in left hip Vitamin B12 and Folate 1 Year E78.5 - Hyperlipidemia, unspecified, M81.0 - Age-related osteoporosis without current pathological fracture, Z00.00 - Encounter for general adult medical examination without abnormal findings Complete Blood Count Auto Diff 1 Year E78.5 - Hyperlipidemia, unspecified, M81.0 - Age-related osteoporosis without current pathological fracture, Z00.00 - Encounter for general adult medical examination without abnormal findings Comprehensive [place]. Panel Fast 1 Year E78.5 - Hyperlipidemia, unspecified, M81.0 - Age-related osteoporosis without current pathological fracture, Z00.00 - Encounter for general adult medical examination without abnormal findings Vitamin D 25-OH Total 1 Year E78.5 - Hyperlipidemia, unspecified, M81.0 - Age-related osteoporosis without current pathological fracture, Z00.00 - Encounter for general adult medical examination without abnormal findings Bacterial Vaginosis Panel Today N76.0 - Acute vaginitis AMB Urinalysis Automated Today Z13.9 - Encounter for screening, unspecified Lipid Panel 1 Year E78.5 - Hyperlipidemia, unspecified, M81.0 - Age-related osteoporosis without current pathological fracture, Z00.00 - Encounter for general adult medical examination without abnormal findings Quality Reporting (2019) Depression/Bipolar (159/160/161/177) PHQ-9: Total score: 1 Coding Level of Care Code Medicare Subsequent (G0439) Diagnoses Annual physical exam Z00.00 Hyperlipidemia E78.5 Osteoporosis M81.0 Hip pain, bilateral M25.551; M25.552 Incontinence of urine R32 CPT Codes Advance Care Planning - Advance Care Planning discussion: On file, no changes ([id number]) Advance Care Planning - Time spent: 1-15 minutes, on File ([id number]) Additional Codes PHQ-9 - 57352 - PHQ-9 Billing: Yes ([id number]) Advance Care Planning Advance Care Planning discussion: On file, no changes Forms completed: Health Care Proxy Time spent: 1-15 minutes, on File Did not discuss due to Cultural/Spiritual beliefs: Yes
--- OUTSIDE RECORDS SUMMARY | 2025-02-03 10:24 | XMS_ITS | Data Portability ---
Author Organization [place] - [facility], [facility] Address [address] [place] [address] Assessment No assessment recorded. Plan of Treatment [...] ROM Referring Physician: Tyrese Catalan, Orthopedic Surgery, [id number] Encounter Date: 11/16/2023 Problems Name Problem SNOMED Code Status Onset Date Resolution Date Notes Provider Name and Address Organization Details Recorded Time No complaints 745245070 Active Status : 'A'; Not Available [employer] [...] Updated DateTime 11/16/2023 154.94 cm 22.7 kg/m2 61279.08 g APOLONIA VALENZUELAHEAD [place] - [facility] 11/16/2023 09:29:32 Social History None recorded. Functional Status None recorded. Mental Status None recorded. Family History Nothing Reported. Medical History No medical history recorded. Gynecological HistoryNo gynecological history recorded. Obstetrics History GPAL:G 0 P 0 0 0 0 Past Encounters Encounter ID Performer Location Encounter Start Date Encounter Closed Date Diagnosis/Indication Diagnosis SNOMED-CT Code Diagnosis ICD10 Code Diagnosis Note [id number] MENA Guzmán [address] [place] [address] 11/16/2023 09:17:25 12/08/2023 06:39:55 Pain of bilateral hip joints 6585488080 9490411 M25.551 M25.552 Bilateral trochanteric bursitis 5615606350 2003247 M70.61 M70.62 Health Concerns Section Related Observation LastModified by Organization Detai ls LastModified Time None Recorded Concern Status LastModified by Organization Details LastModified Time None Recorded Advance Directives Directive None Recorded Payers Insurance Date Sequence Insurance Name Policy Number Policy Padgett Covered Member ID Padgett Member ID Guarantor Name 11/16/2023 1 [place] [employer] G[place] Princess Ellison Kacey [id number] Princess C Kacey 12/08/2023 2 [place] [id number] Princess Ellison Kacey [id number] Princess C aKcey Notes Date Note Type Note Provider Name [...] Alert and lucid. 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 No spasticity [...] as well as occasional use of Aleve. [facility] speech recognition pest control service sales agent software was used to create portions of this document. An attempt at proofreading has been made to minimize errors. Please call for corrections. Tyrese Catalan PA-C [address] [facility] [address], [place], [address], [facility] - [facility] 11/16/2023 12:42:48 OBGyn Episode No OBEpisode recorded.
== END 2025-02-03 11:37 | disposition home or self-care (01) ==
LOC: HO.HMCC 09:52
PROVIDERS: PCP Internal Medicine; Visit Provider Internal Medicine
DX: Z00.00 Encounter for general adult medical examination without abnormal findings (principal); E78.5 Hyperlipidemia, unspecified; M81.0 Age-related osteoporosis without current pathological fracture; M25.551 Pain in right hip; M25.552 Pain in left hip; R32 Unspecified urinary incontinence

== ENCOUNTER 2025-02-03 09:51 | Outpatient (REF) | payer MEDICARE, SELFPAY ==
[2025-02-03 14:24] LABS: Bacterial Vaginosis PCR NEGATIVE (Negative); Candida Group PCR NOT DETECTED (Not Detect); Candida glab krusei PCR NOT DETECTED (Not Detect); Trichomonas vaginalis PCR NOT DETECTED (Not Detect)
== END 2025-02-03 09:52 | disposition home or self-care (01) ==
LOC: HO.LAB 09:51
PROVIDERS: PCP Internal Medicine; Visit Provider Internal Medicine
DX: Z00.00 Encounter for general adult medical examination without abnormal findings (principal); E78.5 Hyperlipidemia, unspecified; M81.0 Age-related osteoporosis without current pathological fracture; R32 Unspecified urinary incontinence; M25.551 Pain in right hip; M25.552 Pain in left hip; N76.0 Acute vaginitis
CPT/HCPCS: 81003; 81515; 96127

== ENCOUNTER 2025-02-28 09:12 | Outpatient (REF) | payer MEDICARE, SELFPAY ==
--- NOTE | ~2025-02-28 | MM_ITS ---
EXAMINATION: DXA BONE DENSITY AXIAL HISTORY: M81.0 - Age-related osteoporosis without current pathological fracture TECHNIQUE: SoothEase Dual energy absorptiometry (DEXA) of the lumbar spine, total left hip, and femoral neck was performed. COMPARISON: Comparison is made with the prior examination dated 11/04/2022. FINDINGS: The bone mineral density of the lumbar spine is 0.837 g/cm2, corresponding to a T-score of -2.9, and a Z-score of -0.9. This is indicative of osteoporosis. This represents a BMD change of -0.7% compared to the prior exam. This is not statistically significant. The bone mineral density of the left total hip is 0.813 g/cm2, corresponding to a T-score of -1.5, and a Z-score of 0.0. This is indicative of osteopenia. This represents a BMD change of 0.0% compared to the prior exam. This is not statistically significant. The bone mineral density of the left femoral neck is 0.720 g/cm2, corresponding to a T-score of -2.3, and a Z-score of -0.5. This is indicative of osteopenia. This represents a BMD change of 1.3% compared to the prior exam. MM/XR DEXA axial skeleton IMPRESSION: Based on bone mineral density, and according to World Health Organization (WHO) criteria, the diagnosis is consistent with osteoporosis. Statistically, 68% of repeat scans fall within 1 SD (+/- 0.010 g/cm2 for AP spine L1-L4) and 1 SD (+/- 0.012 g/cm2 for femur total) FRAX is a trademark of the [employer] [place] for Metabolic Bone Disease, a World Health Organization (WHO) Collaborating Center. Electronically signed by: Ricardo Plascencia MD 02/28/2025 09:55 AM EDT
--- OUTSIDE RECORDS SUMMARY | 2025-02-28 09:45 | XMS_ITS | Data Portability ---
Author Organization [place] - [facility], [facility] Address [address] [place] [address] Assessment No assessment recorded. Plan of Treatment [...] ROM Referring Physician: Tyrese Catalan, Orthopedic Surgery, [id number] Encounter Date: 11/16/2023 Problems Name Problem SNOMED Code Status Onset Date Resolution Date Notes Provider Name and Address Organization Details Recorded Time No complaints 637598543 Active Status : 'A'; Not Available [employer] [...] Updated DateTime 11/16/2023 154.94 cm 22.7 kg/m2 12135.08 g APOLONIA VALENZUELAHEAD [place] - [facility] 11/16/2023 09:29:32 Social History None recorded. Functional Status None recorded. Mental Status None recorded. Family History Nothing Reported. Medical History No medical history recorded. Gynecological HistoryNo gynecological history recorded. Obstetrics History GPAL:G 0 P 0 0 0 0 Past Encounters Encounter ID Performer Location Encounter Start Date Encounter Closed Date Diagnosis/Indication Diagnosis SNOMED-CT Code Diagnosis ICD10 Code Diagnosis Note [id number] MENA Guzmán [address] [place] [address] 11/16/2023 09:17:25 12/08/2023 06:39:55 Pain of bilateral hip joints 3822453197 5246700 M25.551 M25.552 Bilateral trochanteric bursitis 0952777721 7805870 M70.61 M70.62 Health Concerns Section Related Observation LastModified by Organization Detai ls LastModified Time None Recorded Concern Status LastModified by Organization Details LastModified Time None Recorded Advance Directives Directive None Recorded Payers Insurance Date Sequence Insurance Name Policy Number Policy Padgett Covered Member ID Padgett Member ID Guarantor Name 11/16/2023 1 [place] [employer] G[place]ERNMENT SERVICES Princess Ellison Kacey [id number] Princess C Kacey 12/08/2023 2 [place] [id number] Princess Ellison Kacey [id number] Princess C Kacey Notes Date Note [...] Alert and lucid. Normal insight, affect and grooming.RESIDENCE DIRECTOR: Gross motor coordination is intact. No spasticity [...] as well as occasional use of Aleve. [facility] speech recognition jewelry setter software was used to create portions of this document. An attempt at proofreading has been made to minimize errors. Please call for corrections. Tyrese Catalan PA-C [address] [facility] [address], [place], [address], [facility] - [facility] 11/16/2023 12:42:48 OBGyn Episode No OBEpisode recorded.
--- OUTSIDE RECORDS SUMMARY | 2025-02-28 09:45 | XMS_ITS | Clinical Summary ---
Author Organization 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 Active multivitamin per tablet Take 1 tablet by mouth daily. W/o iron Active Immunizations Immunization Administration Dates Next Due Hepatitis B Adult 05/29/2009,01/17/2009,12/21/19 09 Influenza Trivalent Preservative Free IM 016 Influenza trivalent preserva tive free intradermal 04/19/2013 MMR 12/20/2008 Family History Medical History Relation Comments Hypertension Father 2 Hypertension Mother 2 Diabetes mellitus Sibling 2 Relation Status Comments Father 1 Father 2 Mother 1 Mother 2 Sibling 1 Sibling 2 Social History Tobacco Use Types Packs/Day Years Used Date Smoking Tobacco: Never Smokeless Tobacco: Never Tobacco Cessation:Counseling Given: Not Answered Alcohol Use Standard Drinks/Week Comments Yes 2 (1 standard drink = 0.6 oz pur e alcohol) Education Answer Date Recorded Are you interested in more education? Not on gume e 12/05/2022 Are you concerned about learning? Not on file 12/05/2022 No 12/05/2022 No 12/05/2022 Digital Access Answer Date Recorded No 01/05/2023 No 01/05/2023 Reliable internet access at home? Not on file 01/05/2023 Device with a working camera? Not on file Comments No Sex and Gender Information Value Date Recorded Sex Assigned at Female 07/01/2022 9:57 PM EST Legal Sex Female 9:52 PM EDT Gender Identity Female 07/01/2022 9:57 PM EST Sexual Orientation Straight 07/01/2022 9: 57 PM EST Last Filed Vital Signs Vital Sign Reading Time Taken Comments Blood Pressure 103/67 07/02/2022 12:53 PM EST Pulse 52 07/02/2022 12:53 PM EST Temperature 36 C (96.8 F) 07/02/2022 12:38 PM EST Respiratory Rate 16 07/02/2022 12:53 PM EST Oxygen Saturation 98% 07/02/2022 12:53 PM EST Inhaled Oxygen Concentration - - Weight 55.3 kg (122 lb) 07/01/2022 10:55 AM EST Height 156.2 cm (5' 1.5 ) 07/01/2022 11:07 AM ES T Body Mass Index 22.68 07/01/2022 10:55 AM EST Plan of Treatment Health Maintenance Due Date Last Done Comments Adult Td,Tdap Booster 1955 DEPRESSION SCREENING 1969 HEPATITIS C SCREENING 1975 COLOGUARD 2002 FOBT 2002 SIGMOIDOSCOPY 2002 VIRTUAL COLONOSCOPY 2002 PNEUMOCOCCAL VACCINES (50+ years) (1 of 1 - PCV) 2007 ZOSTER VACCINES (1 of 2) 2007 FIT TEST 04/19/2014 04/19/2013 MAMMOGRAM 05/06/2018 05/06/2016 LIPID PANEL 08/05/2021 08/05/2016 OSTEOPOROSIS SCREENING INITI AL (ONE-TIME) 2022 COVID-19 VACCINE (3 - 2023-2 5 season) 2024 04/13/2021, 03/16/2021 RSV VACCINE (1 - 1-dose 75+ series) 2032 COLONOSCOPY 07/02/2032 07/02/2022, 02/14/2011 COLORECTAL CANCER SCREENING 07/02/2032 SMOKING STATUS SCREENING (On ce After 26 Yrs) Completed 07/02/2022 HEPATITIS A VACCINES Aged Out No long er eligible based on patient's age to complete this topic HIB VACCINES Aged Out No longer eligi ble based on patient's age to complete this topic MENINGOCOCCAL VACCINES (ACWY) Aged Out No longer eligible based on patient's age to complete this topic MENINGOCOCCAL VACCINES (B) Aged Out N o longer eligible based on patient's age to complete this topic Medical Devices Not on file Procedures Procedure Name Priority Date/Time Associated Diagnosis Comments ENDOSCOPY, COLON 07/02/2022 12:0 8 PM EST OUTSIDE LDL Routine 08/05/2016 from Last 3 Months or Most Recently Relevant to Health Maintenance Results * ENDOSCOPY, COLON (07/02/2022 12:08 PM EST) Narrative Transcriptions Sai Antonio MD - 07/02/2022 12:08 PM EST Patient Name: Princess Hiltonvirginiemadhuri Attending MD:: SAI ANTONIO MD Procedure Date: 07/02/2022 12:08PM Date of : 1955 Age: 67 Admit Type: Outpatient Gender: Female Room: [place] [address] Referring MD: Lubna Kee MD Exam Type: Colonoscopy Indications: Screening in patient at increased risk: Colorectal cancer in father 60 or older, Last colonoscopy:February 2011 Medications: Propofol per Anesthesia Procedure: Informed consent was obtained from the patientafter discussion of the indications, limitations, alternatives, benefits, and risks of the procedure. Risks specifically discussed include but are not limited to medication reactions, missed lesions, bleeding, perforation, or the need for emergent surgery. Throughout the procedure, the patient's blood pressure, pulse, end-tidal CO2, and oxygensaturations were monitored continuously. The Olympus adult variable colonoscope CF-FE016G #6 was introduced through the anus and advanced to the terminal ileum, with identification of theappendiceal orifice and IC valve. The terminal ileum, the appendiceal orifice and the rectum werephotographed. The colonoscopy was performed without difficulty.The patient tolerated the procedure well. The qualityof the bowel preparation was excellent. The bowel preparation used was PEG in water via split dose instruction. Complications: No immediate complications. Estimated blood loss:None. Findings: The perianal and digital rectal examinations were normal. Pertinent negatives include no palpablerectal lesions. Internal hemorrhoids were found duringretroflexion. The hemorrhoids were small. A small polyp was found in the distal ascendingcolon. The polyp was sessile. The polyp was removed with a cold snare. Resection and retrieval werecomplete. The exam was otherwise without abnormality. The terminal ileum appeared normal. Retroflexion in the right colon was performed. Impression: - Internal hemorrhoids. - One small polyp in the distal ascending colon, removed with a cold snare. Resected andretrieved. - The examination was otherwise normal. - The examined portion of the ileum was normal. Recommendation: - Repeat colonoscopy in 5 years for screeningpurposes. SAI ANTONIO MD 07/02/2022 12:38:50 PM This report has been signed electronically. Number of Addenda: 0 Note Initiated On: 07/02/2022 12:08 PM Procedure Code(s): --- Professional --- 43938, Colonoscopy, flexible; with removal of tumor(s), polyp(s), or other lesion(s) by snare technique --- Technical --- 79399, Colonoscopy, flexible; with removal of tumor(s), polyp(s), or other lesion(s) by snare technique Diagnosis Code(s): --- Professional --- Z80.0, Family history of malignant neoplasm of digestive organs K64.8, Other hemorrhoids K63.5, Polyp of colon --- Technical --- Z80.0, Family history of malignant neoplasm of digestive organs K64.8, Other hemorrhoids K63.5, Polyp of colon CPT copyright 2020 [employer]. All rights reserved. The codes documented in this report are preliminary and upon cyber security architect reviewmay be revised to meet current compliance requirements. Procedure Date: 07/02/2022 12:08:55 PM [address] [place] [address] Lubna Kee MD GI PROCEDURE ORDERABLES Final Result * Outside LDL (08/05/2016) LDL - External 135 50 - 250 mg/ml Historical Provider LAB BLOOD ORDERABLES Isabel l Result from Last 3 Months or Most Recently Relevant to Health Maintenance Insurance [employer] SUPPLEMENT MEDICARE PART A & [place] [address] [place] [address] [employer] MEDEX SUPPLEMENT MEDICARE PART A & B [employer] MEDEX SUPPLEMENT MEDICARE PART A & B [employer] MEDEX SUPPLEMENT MEDICARE PART A & B [employer] MEDEX SUPPLEMENT MEDICARE PART A & B [employer] MEDEX SUPPLEMENT MEDICARE PART A & B Care Teams Railroad Car Checker Relationship Specialty Start Date End Date Lubna Kee MD [address] [place] [address] PCP - General Internal Medicine 07/02/22 Martha Petty NP [email or web address] Historical LMR Provider 05/31/17 Additional Source Comments The information contained in this document represents components of the legal health record. It is not the complete legal health record.[facility]
== END 2025-02-28 09:13 | disposition home or self-care (01) ==
LOC: HO.MAMMO 09:12
PROVIDERS: PCP Internal Medicine; Visit Provider Internal Medicine
DX: M81.0 Age-related osteoporosis without current pathological fracture (principal)
CPT/HCPCS: 77080

== ENCOUNTER → 2025-02-28 09:15 | Outpatient (BNV) | payer MEDICARE, SELFPAY | PROVIDERS: PCP Internal Medicine; Visit Provider Radiology Diagnostic Radiology | DX: E28.39 Other primary ovarian failure (principal) | CPT/HCPCS: 77080 ==